=== PATIENT | male | born 1980 ===

== ENCOUNTER 2017-04-28 09:39 | Emergency (ER) | payer MEDICAID ==
[2017-04-28 09:47] VITALS: BP 121/67; PULSE 81; RESP 16; TEMP 98; O2SAT 98
--- NOTE | 2017-04-28 10:15 | C.PDOC ---
History Of Present Illness 36 year old male presents to the ED for evaluation of a rash which developed over the past 5 days. Patient notes the rash is itchy and he feels like it is spreading. 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 He denies fever, chills, throat-swelling sensation, difficulty with breathing/swallowing, contact with known allergens, contact with new foods/ detergents/soaps, or previous history of similar symptoms. Time Seen by Provider: 04/28/17 09:54 Chief Complaint (Nursing): Abnormal Skin Integrity History Per: Patient History/Exam Limitations: no limitations Onset/Duration Of Symptoms: Days (5) Current Symptoms Are (Timing): Still Present Quality Of Symptoms: Itching Additional History Per: Patient Past Medical History Reviewed: Historical Data, Nursing Documentation, Vital Signs Vital Signs: Last Vital Signs Temp 98 F 04/28/17 09:44 Pulse 81 04/28/17 09:44 Resp 16 04/28/17 09:44 BP 121/67 04/28/17 09:44 Pulse Ox 98 04/28/17 13:05 - Medical History PMH: No Chronic Diseases Surgical History: No Surg Hx Family History: States: Unknown Family Hx - Social History Hx Alcohol Use: No Hx Substance Use: No - Immunization History Hx Tetanus Toxoid Vaccination: No Hx Influenza Vaccination: No Hx Pneumococcal Vaccination: No Review Of Systems Constitutional: Negative for: Fever, Chills Respiratory: Negative for: Cough, Shortness of Breath, Wheezing Skin: Positive for: Rash (itchy) Physical Exam - Physical Exam Appears: Non-toxic, No Acute Distress Skin: Warm, Dry, Rash (erythematous, maculopapular rash to bilateral upper and lower extremities, chest, and below left eye. no vesicles or discharge ), No Other (no periorbital erythema or swelling) Head: Atraumatic, Normacephalic, No Swelling (periorbital) Eye(s): bilateral: Normal Inspection, PERRL, EOMI Nose: Normal, No Discharge Oral Mucosa: Moist Tongue: Normal Appearing, No Swelling Lips: Normal Appearing, No Swelling Throat: Normal, No Erythema, No Exudate Neck: Normal ROM, Supple Chest: Symmetrical, No Deformity, No Tenderness Cardiovascular: Rhythm Regular, No Murmur Respiratory: Normal Breath Sounds, No Rales, No Rhonchi, No Wheezing Extremity: Normal ROM, Tenderness, Capillary Refill (less than 2 seconds ), No Swelling Neurological/Psych: Oriented x3, Normal Speech, Normal Cognition Gait: Steady ED Course And Treatment O2 Sat by Pulse Oximetry: 98 (on RA) Pulse Ox Interpretation: Normal Progress Note: On reassessment, patient is resting comfortably, showing no signs of respiratory distress and is stable for discharge. Patient is advised to follow up with his PMD within 2-5 days for further evaluation and/or return to the ED if symptoms worsen. Disposition - Disposition Disposition: HOME/ ROUTINE Disposition Time: 10:07 Condition: STABLE Additional Instructions: Follow up with your primary medical doctor or clinic in 2-5 days for further evaluation. Take medications as prescribed. Return to the emergency department at any time if symptoms persist or worsen. Prescriptions: DiphenhydrAMINE [Benadryl] 25 mg PO Q6 #20 cap predniSONE [Prednisone] 40 mg PO DAILY #8 tab Skin Cleanser Combination No.8 [Zanfel] 1 soa TP DAILY #1 soa Instructions: Contact Dermatitis (ED) Forms: [employer] (Iranian) - Clinical Impression Clinical Impression: Contact dermatitis - PA / CLEANING PROFESSIONAL / Resident Statement MD/DO has reviewed & agrees with the documentation as recorded. - Scribe Statement The provider has reviewed the documentation as recorded by the Scribe (Brandy Gramajo) All medical record entries made by the Scribe were at my direction and personally dictated by me. I have reviewed the chart and agree that the record accurately reflects my personal performance of the history, physical exam, medical decision making, and the department course for this patient. I have also personally directed, reviewed, and agree with the discharge instructions and disposition.
== END 2017-04-28 10:48 | disposition home or self-care (01) ==
LOC: C.ER 09:39
DX: L25.9 Unspecified contact dermatitis, unspecified cause (principal)

== ENCOUNTER 2018-05-08 10:40 | Emergency (ER) | payer MEDICAID ==
[2018-05-08 10:57] VITALS: BP 139/82; PULSE 114; RESP 18; TEMP 98.6; O2SAT 96
--- NOTE | 2018-05-08 11:46 | C.PDOC ---
History Of Present Illness 37 year old male presents to the ED for evaluation of a laceration to the left wrist s/p injury a few hours ago. Patient reports a piece of metal tin from the ceiling fell onto his left wrist while he was at work. Denies fever, numbness, tingling, and any other associated symptoms. Time Seen by Provider: 05/08/18 11:12 Chief Complaint (Nursing): Abnormal Skin Integrity History Per: Patient History/Exam Limitations: no limitations Onset/Duration Of Symptoms: Hrs Current Symptoms Are (Timing): Still Present Past Medical History Reviewed: Historical Data, Nursing Documentation, Vital Signs Vital Signs: Last Vital Signs Temp 98.6 F 05/08/18 10:54 Pulse 114 H 05/08/18 10:54 Resp 18 05/08/18 10:54 BP 139/82 05/08/18 10:54 Pulse Ox 96 05/08/18 10:54 - Medical History PMH: Asthma Family History: States: Unknown Family Hx - Social History Hx Alcohol Use: No Hx Substance Use: No - Immunization History Hx Tetanus Toxoid Vaccination: No Hx Influenza Vaccination: No Hx Pneumococcal Vaccination: No Review Of Systems Except As Marked, All Systems Reviewed And Found Negative. Constitutional: Negative for: Fever Musculoskeletal: Positive for: Other (left hand laceration. ) Neurological: Negative for: Weakness, Numbness, Incoordination Physical Exam - Physical Exam Appears: Non-toxic Skin: Warm, Dry Head: Atraumatic, Normacephalic Eye(s): bilateral: Normal Inspection Extremity: Normal ROM (x4), Other (2cm shallow laceration to the left anterior wrist.) Neurological/Psych: Oriented x3, Normal Speech, Normal Motor, Normal Sensation, Normal Reflexes Gait: Steady ED Course And Treatment O2 Sat by Pulse Oximetry: 96 (RA) Pulse Ox Interpretation: Normal Procedure: Wound Repair - Time Performed Time Performed: 15:00 - Procedure Procedure: Wound Repair: laceration to the left anterior wrist - Performed by Performed by: Mid-level Provider - Indications Indication(s):: Laceration (2cmm ) - Location Location:: Left, Anterior - Anesthetic Technique Local/Regional Anesthetic:: Lidocaine 1% - Complexity Complexity:: Simple (one layer) - Wound repair method Sutures:: Technique (Stitches x3 of 4-o nylon. Tetanus ordered.) - Patient tolerated procedure Patient Tolerated Procedure:: Well Disposition Counseled Patient/Family Regarding: Diagnosis, Need For Followup - Disposition Disposition: HOME/ ROUTINE Disposition Time: 12:11 Condition: IMPROVED Additional Instructions: Keep wound clean and dry, Change bandage daily, look for any signs of infection such as redness, pus, swelling. If so, return to ER for evaluation. Otherwise, suture removal in 10 days. Prescriptions: Bacitracin OINT 1 applic TOP BID #1 tube Instructions: Laceration Repair With Stitches (DC) Forms: [employer] (Guatemalan), General Discharge Instructions - Clinical Impression Clinical Impression: Laceration of left wrist with tendon involvement - PA / CHIEF CLIENT OFFICER / Resident Statement MD/DO has reviewed & agrees with the documentation as recorded. - Scribe Statement The provider has reviewed the documentation as recorded by the Scribe (Savanah Montejo) All medical record entries made by the Scribe were at my direction and personally dictated by me. I have reviewed the chart and agree that the record accurately reflects my personal performance of the history, physical exam, medical decision making, and the department course for this patient. I have also personally directed, reviewed, and agree with the discharge instructions and disposition.
[2018-05-08] MEDS ORDERED: Lidocaine 1% Inj (20ml) INFIL ONE (11:47)
[2018-05-08] MEDS ORDERED: Bacitracin 500 Units/gm Oint Foilpak UD TOP ONE (11:47)
[2018-05-08] MEDS ORDERED: Tdap Vaccine 0.5 ml Vial (10-64 yrs) IM ONE (11:47)
[2018-05-08] MEDS ORDERED: Bacitracin 500 Units/gm Oint Foilpak UD ONE (11:51)
[2018-05-08] MEDS ORDERED: Lidocaine Hydrochloride 5 ML INJ ONE (11:51)
== END 2018-05-08 12:16 | disposition home or self-care (01) ==
LOC: C.ER 10:40
DX: S61.512A Laceration without foreign body of left wrist, initial encounter (principal); W20.8XXA Other cause of strike by thrown, projected or falling object, initial encounter; Y92.89 Other specified places as the place of occurrence of the external cause; Y99.0 Civilian activity done for income or pay

== ENCOUNTER 2018-05-14 11:21 | Emergency (ER) | payer MEDICAID ==
[2018-05-14] MEDS ORDERED: Oxycodone/Acetaminophen 5/325 mg Tab PO STA ×2 (11:35→11:36)
[2018-05-14] MEDS ORDERED: Bupivacaine HCl 0.25% PF (10 ml) Inj IJ ONE (11:36)
[2018-05-14] MEDS ORDERED: Oxycodone/Acetaminophen 5/325 mg Tab ONE (11:43)
[2018-05-14] MEDS ORDERED: Bupivacaine 0.25% 20 ML INJ IJ ONE (11:45)
--- NOTE | 2018-05-14 12:11 | C.PDOC ---
History Of Present Illness 37 y/o male presents to the ED for evaluation of left hand stab injury sustained just prior to arrival. Patient states he accidentally stabbed the left hand with a drill bit while drilling through wood at work this morning. He now complains of increasing pain and swelling to the area. Of note patient is right-hand dominant. Time Seen by Provider: 05/14/18 11:33 Chief Complaint (Nursing): Abnormal Skin Integrity History Per: Patient History/Exam Limitations: no limitations Onset/Duration Of Symptoms: Hrs Current Symptoms Are (Timing): Still Present Past Medical History Reviewed: Historical Data, Nursing Documentation, Vital Signs Vital Signs: Last Vital Signs Temp 99.1 F 05/14/18 11:27 Pulse 112 H 05/14/18 11:27 Resp 20 05/14/18 11:27 BP 139/88 05/14/18 11:27 Pulse Ox 97 05/14/18 11:27 - Medical History PMH: Asthma Family History: States: Unknown Family Hx - Social History Hx Alcohol Use: No Hx Substance Use: No - Immunization History Hx Tetanus Toxoid Vaccination: Yes (2016) Hx Influenza Vaccination: Yes (04/2018) Hx Pneumococcal Vaccination: No Review Of Systems Except As Marked, All Systems Reviewed And Found Negative. Constitutional: Negative for: Fever Musculoskeletal: Positive for: Hand Pain (and swelling) Skin: Positive for: Lesions (to left hand) Neurological: Negative for: Numbness (or tingling) Physical Exam - Physical Exam Appears: Non-toxic, In Acute Distress (mild painful distress) Skin: Normal Color, Warm, Dry Head: Atraumatic, Normacephalic Eye(s): bilateral: Normal Inspection Oral Mucosa: Moist Neck: Normal ROM Chest: Symmetrical Respiratory: No Accessory Muscle Use, Other (NARD) Extremity: Capillary Refill (less than 2 sec to left digits), Other (+ Stab wound to palmar aspect of left hand, no active bleeding) Pulses: Left Radial: Normal, Right Radial: Normal Neurological/Psych: Oriented x3, Normal Speech ED Course And Treatment O2 Sat by Pulse Oximetry: 97 (RA) Pulse Ox Interpretation: Normal - Other Rad L HAND X-Ray: Interpreted by Me (NEG) Progress - Re-Evaluation Re-evaluation Note: 05/14/18 12:12 PT REFUSING PERCOCET. SP IRRIGATION 500 CC NS D/W DR JEAN MÉNDEZ ANTHROPOLOGY INSTRUCTOR WILL REVIEW, CONTACT SURG RESIDENT. D/W SURG RESIDENT WILL EVAL IN ER 05/14/18 13:33 S/P EVAL SURG, RECOMMEND ADMISSION. WILL CONSULT, ADMIT MEDICINE. PMD ZAIRA GAMBOA D/W DR Anahi MÉNDEZ ANTHROPOLOGY INSTRUCTOR WILL ADMIT 05/14/18 13:43 The patient declines admission to the hospital and wishes to leave the Emergency Department. This action is against my medical advice. This decision was made with informed refusal. The patient was told that admission to the hospital is necessary. Explanation of the reasons why were discussed. The risks of leaving were explained to the patient and include, but are not limited to, worsening of known or currently unknown conditions, permanent disability and from undiagnosed or untreated conditions. The patient has the capacity to make this informed decision and understands my explanation of the current medical problem and risks of leaving. The patient voluntarily accepts these risks and signed an AMA form documenting our conversation. The patient was given the opportunity to ask questions and reconsider. The patient was encouraged to return to the Emergency Department at any time for further care. - Data Reviewed Data Reviewed: Lab, Diagnostic imaging, Old records Medical Decision Making Medical Decision Making: Impression: Stab wound, left hand Plan: --Left hand x-ray --Percocet 1 tab PO --Zofran 4 mg PO --Marcaine .25% ordered for wound repair Paged hand specialist on-call to discuss case. Disposition Counseled Patient/Family Regarding: Studies Performed, Diagnosis, Need For Followup, Rx Given - Disposition Referrals: Hitesh Johnson MD [Staff Provider] - Disposition: AGAINST MEDICAL ADVICE Disposition Time: 13:44 Condition: STABLE Additional Instructions: YOU HAVE BEEN ADVISED THE NEED FOR ADMISSION FOR TREATMENT OF YOUR CONDITION. YOU HAVE BEEN ADVISED OF THE RISKS/BENEFITS, INCLUDING DISABILITY, DETERIORATION AND . FOLLOW UP WITH YOUR PMD STANLEY. Prescriptions: Amoxicillin/Clavulanate [Augmentin 875 MG-125 MG] 1 tab PO BID #14 tab Instructions: Wound Care (DC), Leaving Against Medical Advice Forms: [employer] (Bolivian), Work Excuse - Clinical Impression Clinical Impression: Puncture wound, hand - Scribe Statement The provider has reviewed the documentation as recorded by the Scribe (Letitia Ramos) Provider Attestation: All medical record entries made by the Scribe were at my direction and personally dictated by me. I have reviewed the chart and agree that the record accurately reflects my personal performance of the history, physical exam, medical decision making, and the department course for this patient. I have also personally directed, reviewed, and agree with the discharge instructions and disposition.
--- NOTE | 2018-05-14 12:33 | RAD ---
PROCEDURE: Left Hand Radiographs. HISTORY: TRAUMA COMPARISON: None. FINDINGS: BONES: Normal. No fracture. JOINTS: Normal. No osteoarthritic changes. SOFT TISSUES: Normal. OTHER FINDINGS: None. IMPRESSION: Normal left hand radiographs.
[2018-05-14] MEDS ORDERED: cefTRIAXone IV 1 gm in Dextros 50 ML IVPB STA (13:51)
[2018-05-14] MEDS ORDERED: cefTRIAXone 1 gm 1 GM/100 ML BAG IVPB ONE (13:53)
--- NOTE | 2018-05-14 14:15 | CP.PCM.CON ---
History of Present Illness - History of Present Illness History of Present Illness: Hand surgery consult note for Dr. Johnson Consulted for: left hand injury Mr. Carey is a 37M who arrived in the ER with a small penetrating wound located on the left thenar eminence. Patient states while at work he briefly lost control of a drill, penetrating the skin on his left hand. He quickly removed the drill and applied pressure to the bleeding wound. Within 15 minutes of the incident, he admitted himself to the ED. Pain is rated 10/10 and describes it as a stretching/throbbing pain that radiates to the anterior surface of his left forearm. He is unable to make a fist with his hand and has decrease motor function to his thumb and index finger. Also states he his thumb and thenar eminence are "numb".The ED irrigated the wound superficial and consulted general surgery to evaluate the hand. Patient had a tetanus shot last year, and states prior to the incident he had no other symptoms of weakness or numbness to the hand or arm. Positive for edema and swelling to the left thenar eminence with tenderness to palpation. Denies fever, N/V/D/C, chest pain, seizures or syncope. PMH: asthma in childhood Surgical hx: none Family hx - none Allergies: None Social hx: Denies tobacco, alcohol or illicit drug use Review of Systems - Review of Systems All systems: reviewed and no additional remarkable complaints except (as per HPI) Past Patient History - Infectious Disease Hx of Infectious Diseases: None - Past Medical History & Family History Past Medical History?: Yes Past Family History: Reviewed and not pertinent - Past Social History Smoking Status: Never Smoked Alcohol: None Drugs: Denies - PULMONARY Hx Asthma: Yes - PSYCHIATRIC Hx Substance Use: No - SURGICAL HISTORY Hx Surgeries: No - ANESTHESIA Hx Anesthesia: No Hx Anesthesia Reactions: No Hx Malignant Hyperthermia: No Meds Home Medications: Home Medication List Medication Instructions Recorded Confirmed Type Amoxicillin/Clavulanate [Augmentin 1 tab PO BID #14 tab 05/14/18 Rx 875 MG-125 MG] RX: Doxycycline Hyclate [Doryx] 100 mg PO BID #14 cap 05/14/18 Rx Allergies/Adverse Reactions: Allergies Allergy/AdvReac Type Severity Reaction Status Date / Time No Known Allergies Allergy Verified 05/14/18 11:30 - Medications Medications: Current Medications Acetaminophen (Tylenol 325mg Tab) 650 mg PO Q6 PRN PRN Reason: Pain, moderate (4-7) Ceftriaxone Sodium 1 gm/ (Sodium Chloride) 100 mls @ 100 mls/hr IVPB Q12H MELANIE; Protocol Last Admin: 05/14/18 13:51 Dose: 100 mls/hr Doxycycline Hyclate 100 mg/ (Sodium Chloride) 100 mls @ 100 mls/hr IVPB Q12H MELANIE; Protocol Doxycycline Hyclate 100 mg/ (Sodium Chloride) 100 mls @ 100 mls/hr IVPB STAT STA; Protocol Stop: 05/14/18 14:50 Physical Exam - Constitutional Appears: Well, Non-toxic, No Acute Distress - Head Exam Head Exam: ATRAUMATIC, NORMOCEPHALIC - Eye Exam Eye Exam: Normal appearance. absent: Conjunctival injection, Scleral icterus - ENT Exam ENT Exam: Mucous Membranes Moist, Normal Oropharynx - Respiratory Exam Respiratory Exam: NORMAL BREATHING PATTERN. absent: Accessory Muscle Use, Respiratory Distress - Cardiovascular Exam Cardiovascular Exam: Tachycardia, REGULAR RHYTHM - GI/Abdominal Exam GI & Abdominal Exam: Soft. absent: Distended, Tenderness - Extremities Exam Extremities exam: Positive for: pedal edema Additional comments: 2mm curvilinear penetrating wound located in the webspace between the thumb and the index finger of the left hand. Significant swelling/edema with some erythema is present to the thenar region compared to the right hand. There is tenderness to palpation that radiates to the anterior portion of the left forearm. decreased light touch in the ulnar edge and ventral region of the left thumb. normal capillary refill. 4/5 thumb abduction and extension strength on the left 5/5 on the right. - Neurological Exam Neurological exam: Alert, Oriented x3 - Psychiatric Exam Psychiatric exam: Normal Affect, Normal Mood - Skin Skin Exam: Dry, Normal Color, Warm Results - Vital Signs Recent Vital Signs: Last Vital Signs Temp 99.1 F 05/14/18 11:27 Pulse 112 H 05/14/18 11:27 Resp 20 05/14/18 11:27 BP 139/88 05/14/18 11:27 Pulse Ox 97 05/14/18 13:51 - Imaging and Cardiology left thand XR Status: Image reviewed by me, Report reviewed by me Assessment & Plan - Assessment and Plan (Free Text) Assessment: 37M with a penetrating trauma wound to the left webspace between the thumb and index finger with hematoma Plan: -Recommended inpatient admission for close monitoring with q2h neuro checks and betadine soaking, and IV antibiotics but patient refused and signed out AMA. -Given outpateint Augmentin and Doxycycline per ER attending Discussed with Dr. Alex Pinedo, PGY2
[2018-05-14 14:35] VITALS: BP 128/80; PULSE 94; RESP 18; TEMP 98.6; O2SAT 98
== END 2018-05-14 15:43 | disposition left against medical advice (07) ==
LOC: C.ER 11:21
DX: S61.412A Laceration without foreign body of left hand, initial encounter (principal); W26.8XXA Contact with other sharp object(s), not elsewhere classified, initial encounter; Y92.89 Other specified places as the place of occurrence of the external cause; Y99.0 Civilian activity done for income or pay
CPT/HCPCS: 73130; 96365; 96367; 99284; J0696